=== PATIENT | male | born 1985 | race Caucasian/White ===

== ENCOUNTER 2025-01-25 00:15 | Emergency (ER) | payer MEDICAID, OTHER ==
[~2025-01-25] VITALS: Ht 185.4 cm; Wt 80.0 kg
[2025-01-25 00:32] VITALS: O2SAT 99
[2025-01-25 03:03] LABS: CREATININE 0.8 mg/dL (0.6-1.3); UREA NITROGEN BLOOD 9 mg/dL (9-23)
[2025-01-25 03:04] LABS: BASOPHILS % 0.6 % (0.0-2.0); EOSINOPHILS % 2.9 % (0.0-5.0); HEMATOCRIT. 40.8 % (42.0-52.0); HEMOGLOBIN. 13.9 g/dL (14.0-18.0); LYMPHOCYTES % 33.2 % (20.0-50.0); MEAN PLATELET VOLUME 6.8 fl (7.4-10.4); MONOCYTES % 7.5 % (2.0-8.0); NEUTROPHILS % 55.8 % (40.0-76.0); PLATELET 301 x1000/uL (130-400); RED BLOOD CELL COUNT 4.81 mill/uL (4.7-6.1); RED CELL DISTRIBUTION WIDTH 13.6 % (11.6-14.6)
[2025-01-25] MEDS: ONDANSETRON HCL 4MG/2ML INJ IV ONE (03:06)
[2025-01-25] MEDS: MORPHINE SULFATE 4 MG/ML INJ (FOR IV/IM USE) IV ONE (03:07)
[2025-01-25] MEDS: SODIUM CHLORIDE 0.9% 2,000 ML IV ONE (03:11)
[2025-01-25 04:55] VITALS: TEMP 36.8
[2025-01-25] MEDS ORDERED: IOHEXOL-350 100 ML BOTTLE ONE (05:21)
[2025-01-25 05:36] VITALS: BP 109/72; PULSE 57; RESP 15; O2SAT 99
[2025-01-25] MEDS ORDERED: METH-653 MT (05:37)
[2025-01-25] MEDS ORDERED: IBUP-1455 MT (05:37)
== END 2025-01-25 05:51 | disposition home or self-care (01) ==
LOC: ER 00:15
DX: S39.012A Strain of muscle, fascia and tendon of lower back, initial encounter (principal); S86.912A Strain of unspecified muscle(s) and tendon(s) at lower leg level, left leg, initial encounter; J45.909 Unspecified asthma, uncomplicated; M54.2 Cervicalgia; Z79.899 Other long term (current) drug therapy; X58.XXXA Exposure to other specified factors, initial encounter; Y93.89 Activity, other specified; Y92.410 Unspecified street and highway as the place of occurrence of the external cause; Y99.8 Other external cause status
CPT/HCPCS: 80048; 85025; 86850; 86900; 86901; 36415; 74174; 71045; 73560; 71275; 70450; 72125; 96361; 96374; 96375; 99291; Q9967; J2405; J2270; J7030; Z7610 ×2; A4606